=== PATIENT | female | born 1955 | race African-American/Black ===

== ENCOUNTER 2017-01-10 18:41 | Emergency (ER) | payer OTHER ==
[~2017-01-10] VITALS: Ht 162.6 cm; Wt 56.7 kg
[~2017-01-10 18:41] MED LIST: IBUPROFEN400 MG ORAL; IBUPROFEN600 MG ORAL
[2017-01-10] MEDS ORDERED: Norco 5mg/325mg tab ORAL ONE (19:30)
[2017-01-10] MEDS ORDERED: NORCO 5-325 TA1 EACH ORAL (20:17)
[2017-01-10] MEDS ORDERED: IBUPROFEN600 MG ORAL (20:17)
[2017-01-10 20:47] VITALS: BP 125/81
--- NOTE | 2017-01-10 21:03 | Emergency Room Report ---
History of Present Illness General Chief Complaint: Lower Extremity Injury Source: Patient Present Illness HPI Patient presents emergency department today complaining of knee pain. Patient states that she had a fall on to her left knee a few days ago. She had fallen on it before and she thinks that she reinjured it. She is ambulating without difficulty but there is significant bruising. She is requesting x-ray. She denies any other injuries. Denies any headache neck pain chest pain shortness of breath.No other modifying factors. No other associated signs and symptoms. No other complaints were noted. Allergies: Coded Allergies: NO KNOWN DRUG ALLERGIES (Verified Allergy, Unknown, 04/06/15) Patient History Past Medical History: HTN Past Surgical History: none Pertinent Family History: none Social History: Denies: alcohol use, drug use, smoking Last Menstrual Period: N/A Reviewed Nursing Documentation: PMH: Agreed, PSxH: Agreed Nursing Documentation-PMH Hx Cardiac Problems: No - Salcoidosis Hx Hypertension: Yes Review of Systems All Other Systems: negative except mentioned in HPI Physical Exam Vital Signs Date Time Temp Pulse Resp B/P Pulse Ox O2 Delivery O2 Flow Rate FiO2 01/10/17 19:00 98.2 62 18 125/81 97 Room Air Sp02 EP Interpretation: reviewed, normal General Appearance: normal inspection, well appearing, no apparent distress, alert Head: atraumatic Eyes: bilateral eye normal inspection ENT: normal ENT inspection, hearing grossly normal, normal voice Neck: normal inspection, full range of motion, supple, no bony tend Respiratory: normal inspection, lungs clear, normal breath sounds, no respiratory distress, no retraction, no wheezing Cardiovascular #1: regular rate, rhythm, no edema Gastrointestinal: normal inspection, normal bowel sounds, non tender, soft, no guarding, no hernia Genitourinary: no CVA tenderness Musculoskeletal: back normal, normal range of motion, other - Knee contusion left Neurologic: normal inspection, alert, responsive, speech normal Psychiatric: normal inspection, judgement/insight normal, mood/affect normal Skin: normal inspection, normal color, no rash Medical Decision Making Diagnostic Impression: Primary Impression: Contusion of knee, left ER Course Patient presents emergency department today complaining of fall. Differential considerations include fracture dislocation versus strain. Given patient's presentation I felt x-rays are indicated. X-rays did not show any evidence of fracture. Patient was ambulatory difficulty. Therefore felt the patient be discharged home. Patient was given a prescription for pain medications.Patient is advised to follow up with primary doctor in 2-3 days and return the emergency room for any worsening symptoms and as needed. Other X-Ray Diagnostic Results Other X-Ray Diagnostic Results : X-Ray ordered: left knee x-ray # of Views/Limited Vs Complete: 3 View Indication: Pain EP Interpretation: Yes Interpretation: no dislocation, no soft tissue swelling, no fractures Impression: No acute disease Interpreting ER Provider: Electronically signed by Max Cobos MD Last Vital Signs Date Time Temp Pulse Resp B/P Pulse Ox O2 Delivery O2 Flow Rate FiO2 01/10/17 20:47 98.2 18 125/81 97 Room Air 01/10/17 19:00 62 Status: improved Disposition: HOME, SELF-CARE Condition: Stable Scripts Ibuprofen* (MOTRIN*) 600 Mg Tablet 600 MG ORAL Q8H Y for For Pain, #30 TAB 0 Refills Prov: MAX COBOS M.D. 01/10/17 Hydrocodone Bit/Acetaminophen 5-325* (NORCO 5-325*) 1 Each Tablet 1 TAB ORAL Q6H Y for For Pain, #20 TAB 0 Refills Prov: MAX COBOS M.D. 01/10/17 Patient Instructions: Knee Pain MAX COBOS M.D. Jan 10, 2017 21:03
== END 2017-01-10 20:48 | disposition home or self-care (01) ==
LOC: EMR 19:30
DX: S80.02XA Contusion of left knee, initial encounter (principal); W19.XXXA Unspecified fall, initial encounter; Y92.89 Other specified places as the place of occurrence of the external cause; I10 Essential (primary) hypertension; D86.9 Sarcoidosis, unspecified
CPT/HCPCS: 99284

== ENCOUNTER 2019-07-10 10:22 | Emergency (ER) | payer OTHER ==
[~2019-07-10] VITALS: Ht 162.6 cm; Wt 63.5 kg
[~2019-07-10 10:22] MED LIST changes: +NORCO 5-325 TA1 EACH ORAL
[2019-07-10] MEDS ORDERED: Morphine Sulfate 4mg/ml Inj (IV USE ONLY) IVP ONE (10:45)
--- NOTE | 2019-07-10 10:45 | NUR ---
ED Nurse Note: Pt brought in by daughter via wheelchair d/t left buttock 10/10 pain. Pt states that she cannot walk d/t the pain. Per pt, it got progressively worse over 1 week. Respirations even and unlabored on room air. Vitals stable as documented. Family @ bedside. IV inserted and blood sent to lab.
--- NOTE | 2019-07-10 10:50 | Emergency Room Report ---
History of Present Illness General Chief Complaint: Generalized Weakness Source: Patient, Medical Record Present Illness HPI Patient presents with complaints of general weakness Reports that she had a fall to the ground Was unable to stand and has been laying there for the past 3 days Denies any chest pain denies any head injury or lapse of consciousness denies any focal weakness however feels that she has no energy to stand Denies any back trauma Denies any fevers or chills Patient reports that she has a history of hypertension and sarcoidosis Denies any recent change in medications Patient is here with daughter Allergies: Coded Allergies: NO KNOWN DRUG ALLERGIES (Verified Allergy, Unknown, 04/06/15) Patient History Past Medical History: see triage record Reviewed Nursing Documentation: PMH: Agreed; PSxH: Agreed Nursing Documentation-PMH Past Medical History: No History, Except For Hx Cardiac Problems: No - Sarcoidosis Hx Hypertension: Yes Review of Systems All Other Systems: negative except mentioned in HPI Physical Exam Vital Signs Date Time Temp Pulse Resp B/P (MAP) Pulse Ox O2 Delivery O2 Flow Rate FiO2 07/10/19 10:36 97.5 62 17 162/78 (106) 99 Room Air Sp02 EP Interpretation: reviewed, normal General Appearance: other - Patient appears pale Head: normocephalic, atraumatic Eyes: bilateral eye PERRL, bilateral eye EOMI ENT: EOM grossly intact, normal pharynx, no angioedema Neck: supple, no meningismus Respiratory: lungs clear, no respiratory distress, no retraction, no accessory muscle use Cardiovascular #1: regular rate, rhythm, no edema Gastrointestinal: non tender, soft Genitourinary: no CVA tenderness Musculoskeletal: other - Patient has general weakness of both legs able to flex and extend both feet however sensory is intact, neurovascularly intact Neurologic: alert, oriented x3, sensory intact Psychiatric: normal inspection, mood/affect normal Skin: pallor Lymphatic: no adenopathy Medical Decision Making Diagnostic Impression: Primary Impression: Rhabdomyolysis Additional Impression: Episode of generalized weakness ER Course Patient is a fairly complex patient with multiple differential to consideration including but not limited to cardiac cardiopulmonary and vascular emergencies other differential such as intracranial process metabolic emergencies entertained patient's blood work reveals significantly elevated total CK patient has further hydration initiated There is also signs of mild anemia Other imaging are at appropriate levels patient was requested for inpatient care and is transferred secondary to insurance request , Labs Test 07/10/19 10:51 07/10/19 11:00 White Blood Count 9.4 K/UL (4.8-10.8) Red Blood Count 3.97 M/UL (4.20-5.40) Hemoglobin 11.2 G/DL (12.0-16.0) Hematocrit 34.3 % (37.0-47.0) Mean Corpuscular Volume 86 FL (80-99) Mean Corpuscular Hemoglobin 28.2 PG (27.0-31.0) Mean Corpuscular Hemoglobin Concent 32.6 G/DL (32.0-36.0) Red Cell Distribution Width 12.4 % (11.6-14.8) Platelet Count 337 K/UL (150-450) Mean Platelet Volume 7.0 FL (6.5-10.1) Neutrophils (%) (Auto) 73.4 % (45.0-75.0) Lymphocytes (%) (Auto) 15.9 % (20.0-45.0) Monocytes (%) (Auto) 7.8 % (1.0-10.0) Eosinophils (%) (Auto) 1.6 % (0.0-3.0) Basophils (%) (Auto) 1.2 % (0.0-2.0) Sodium Level 140 MMOL/L (136-145) Potassium Level 3.1 MMOL/L (3.5-5.1) Chloride Level 97 MMOL/L (98-107) Carbon Dioxide Level 22 MMOL/L (21-32) Anion Gap 21 mmol/L (5-15) Blood Urea Nitrogen 55 mg/dL (7-18) Creatinine 2.8 MG/DL (0.55-1.30) Estimat Glomerular Filtration Rate 20.7 mL/min (>60) Glucose Level 132 MG/DL (74-106) Calcium Level 10.1 MG/DL (8.5-10.1) Total Bilirubin 0.4 MG/DL (0.2-1.0) Aspartate Amino Transf (AST/SGOT) 48 U/L (15-37) Alanine Aminotransferase (ALT/SGPT) 30 U/L (12-78) Alkaline Phosphatase 96 U/L (46-116) Total Creatine Kinase 1188 U/L (26-308) Troponin I 0.000 ng/mL (0.000-0.056) Total Protein 9.0 G/DL (6.4-8.2) Albumin 3.7 G/DL (3.4-5.0) Globulin 5.3 g/dL Albumin/Globulin Ratio 0.7 (1.0-2.7) Lipase 63 U/L (73-393) Urine Color Pale yellow Urine Appearance Clear Urine pH 5 (4.5-8.0) Urine Specific [place] 1.015 (1.005-1.035) Urine Protein 1+ (NEGATIVE) Urine Glucose (UA) Negative (NEGATIVE) Urine Ketones 1+ (NEGATIVE) Urine Blood 2+ (NEGATIVE) Urine Nitrite Negative (NEGATIVE) Urine Bilirubin Negative (NEGATIVE) Urine Urobilinogen Normal MG/DL (0.0-1.0) Urine Leukocyte Esterase Negative (NEGATIVE) Urine RBC 5-10 /HPF (0 - 2) Urine WBC 0-2 /HPF (0 - 2) Urine Squamous Epithelial Cells Occasional /LPF Urine Bacteria Occasional /HPF (NONE) Rhythm Strip Diag. Results EP Interpretation: yes Rate: 77 Rhythm: NSR, no PVC's, no ectopy Chest X-Ray Diagnostic Results Chest X-Ray Diagnostic Results : Chest X-Ray Ordered: Yes # of Views/Limited/Complete: 1 View Indication: Chest Pain EP Interpretation: Yes Interpretation: no consolidation, no effusion, no pneumothorax Impression: No acute disease Electronically Signed by: Giana Vela DO CT/MRI/US Diagnostic Results CT/MRI/US Diagnostic Results : Impression CT L spineImpression: No acute bony trauma Degenerative changes, as described on a level by level basis above. Note likely significant spinal stenosis at L4-5 Incidental finding of colonic diverticulosis CT pelvicImpression: No acute bony trauma Degenerative changes, as described on a level by level basis above. Note likely significant spinal stenosis at L4-5 Incidental finding of colonic diverticulosis Last Vital Signs Date Time Temp Pulse Resp B/P (MAP) Pulse Ox O2 Delivery O2 Flow Rate FiO2 07/10/19 10:36 97.5 62 17 162/78 (106) 99 Room Air Status: improved Disposition: XFER SHT-TRM HOSP Condition: Improved Giana Vela DO Jul 10, 2019 10:49
[2019-07-10 11:00] VITALS: BP 130/76
--- NOTE | 2019-07-10 11:05 | NUR ---
ED Nurse Note: Pt in radiology
[2019-07-10 11:06] LABS: BASOPHILS % (AUTO) 1.2 % (0.0-2.0); EOSINOPHILS % (AUTO) 1.6 % (0.0-3.0); HEMATOCRIT 34.3 % (37.0-47.0); HEMOGLOBIN 11.2 G/DL (12.0-16.0); LYMPHOCYTES % (AUTO) 15.9 % (20.0-45.0); MEAN CORPUSCULAR VOLUME 86 FL (80-99); MONOCYTES % (AUTO) 7.8 % (1.0-10.0); NEUTROPHILS % (AUTO) 73.4 % (45.0-75.0); PLATELET COUNT 337 K/UL (150-450); RED BLOOD COUNT 3.97 M/UL (4.20-5.40); RED CELL DISTRIBUTION WIDTH 12.4 % (11.6-14.8); WHITE BLOOD COUNT 9.4 K/UL (4.8-10.8)
[2019-07-10 11:17] LABS: ANION GAP 21 mmol/L (5-15); BLOOD UREA NITROGEN 55 mg/dL (7-18); CALCIUM 10.1 MG/DL (8.5-10.1); CARBON DIOXIDE 22 MMOL/L (21-32); CHLORIDE 97 MMOL/L (98-107); CREATININE 2.8 MG/DL (0.55-1.30); POTASSIUM 3.1 MMOL/L (3.5-5.1); SODIUM 140 MMOL/L (136-145)
[2019-07-10 11:31] LABS: ALANINE AMINOTRANSFERASE 30 U/L (12-78); ALBUMIN 3.7 G/DL (3.4-5.0); ALBUMIN/GLOBULIN RATIO 0.7 (1.0-2.7); ALKALINE PHOSPHATASE 96 U/L (46-116); ASPARTATE AMINO TRANSFERASE 48 U/L (15-37); BILIRUBIN,TOTAL 0.4 MG/DL (0.2-1.0); CREATINE KINASE 1188 U/L (26-308)
[2019-07-10 12:15] LABS: APPEARANCE,URINE CLEAR; BILIRUBIN, URINE NEGATIVE (NEGATIVE); COLOR,URINE PALE YELLOW; GLUCOSE, URINE (UA) NEGATIVE (NEGATIVE); KETONES,URINE 1+ (NEGATIVE); LEUKOCYTE ESTERASE ,URINE NEGATIVE (NEGATIVE); NITRITE,URINE NEGATIVE (NEGATIVE); PH,URINE 5 (4.5-8.0); PROTEIN,URINE 1+ (NEGATIVE); UROBILINOGEN,URINE NORMAL MG/DL (0.0-1.0)
--- NOTE | 2019-07-10 12:19 | Diagnostic Imaging Report ---
Indications: Back pain, trauma, general weakness Technique: Spiral acquisitions obtained through the lumbar spine. Multiplanar reconstructions were generated. No IV contrast utilized. Total dose length product 640 mGycm. CTDIvol(s) 17 mGy. Dose reduction achieved using automated exposure control Comparison: none Findings: There is anterior offset of L4 on L5. No associated pars defect. The remaining bony alignment is normal. Vertebral body heights are preserved. No acute fractures. No dislocations. Circumferential annular bulge, facet and ligamentum flavum hypertrophy, and the alignment abnormality results in moderate to severe spinal stenosis at L4-5. There may also be moderate neural foraminal compromise on the left. There is vacuum formation and endplate irregularities of the disc, indicating early degenerative changes, but no significant disc space narrowing. There is bilateral facet arthrosis. At L5-S1, there is severe degenerative disc narrowing with vacuum formation. No significant disc bulge or protrusion or spinal stenosis. There is bilateral facet arthrosis. Facet hypertrophy results in mild narrowing of the bilateral neural foramina. At the remaining disc levels, no significant disc bulge or protrusion, spinal stenosis, or neural foraminal stenosis. The included extraspinal soft tissues demonstrate colonic diverticulosis. Impression: No acute bony trauma Degenerative changes, as described on a level by level basis above. Note likely significant spinal stenosis at L4-5 Incidental finding of colonic diverticulosis [place] [facility] [place] [employer] and the scans are performed using protocols designed to limit radiation exposure to as low as reasonably achievable to attain images of sufficient resolution adequate for diagnostic evaluation.
--- NOTE | 2019-07-10 12:21 | Diagnostic Imaging Report ---
Indication: Pelvic pain and trauma, unable to stand Technique: Noncontrast spiral acquisitions obtained through the pelvis. Multiplanar reconstructions generated. Total dose length product 1001 mGycm. CTDIvol(s) 28 mGy. Dose reduction achieved using automated exposure control Comparison: none Findings: There is slight deformity of the pubic symphysis which appears chronic/developmental. There are degenerative changes of the pubic symphysis. No acute fractures. No dislocations. There are degenerative changes of the sacroiliac joints and lumbosacral junction. The hip joint spaces are preserved. No significant soft tissue contusion demonstrated. Included pelvic viscera demonstrate colonic diverticulosis.. Impression: No acute bony trauma Degenerative changes, as described Colonic diverticulosis The CT scanner at [facility] is accredited by the [employer] and the scans are performed using protocols designed to limit radiation exposure to as low as reasonably achievable to attain images of sufficient resolution adequate for diagnostic evaluation.
--- NOTE | 2019-07-10 13:02 | NUR ---
ED Nurse Note: Report given to CALLIE Haider @ [facility].
[2019-07-10 13:15] VITALS: BP 128/75
--- NOTE | 2019-07-10 13:18 | NUR ---
ED Nurse Note: [facility] arrived, pt was transported to [facility] via gurney in stable condition. familymember at scene.
--- NOTE | 2019-07-10 13:57 | Diagnostic Imaging Report ---
Indication: Chest pain Technique: One view of the chest Comparison: none Findings: Lungs and pleural spaces are clear. Heart size is normal. Impression: No acute process
== END 2019-07-10 13:23 | disposition short-term general hospital (02) ==
LOC: EMR 10:50
DX: M62.82 Rhabdomyolysis (principal); I10 Essential (primary) hypertension; D86.9 Sarcoidosis, unspecified
CPT/HCPCS: 36415; 71045; 72131; 72192; 80053; 81003; 82550; 83690; 84484; 85025; 93005; 96374; 96375; J2270; J2405; J7040; Z7502; 99284